=== PATIENT | female | born 1955 | race Caucasian/White ===

== ENCOUNTER 2021-07-17 11:04 | Emergency (ER) | payer MEDICARE, OTHER, SELFPAY ==
[2021-07-17 11:05] VITALS: BP 155/107; PULSE 104; RESP 20; TEMP 36.6; O2SAT 99; BMI 20.2
--- NOTE | 2021-07-17 11:11 | EKG12_ITS ---
Test Reason : PALPS Blood Pressure : / mmHG Vent. Rate : 089 BPM Atrial Rate : 089 BPM P-R Int : 138 ms QRS Dur : 092 ms QT Int : 372 ms P-R-T Axes : 058 038 038 degrees QTc Int : 452 ms Sinus rhythm with frequent Premature ventricular complexes Nonspecific ST abnormality Abnormal ECG Confirmed by JODI ULLOA, DORA ([id number]), editor map GEOFF ARMSTRONG ([id number]) on 07/19/2021 11:32:05 AM Referred By: CARMELINA/ARCELIA Confirmed By:DORA ZAPATA MD
[2021-07-17 11:31] LABS: Absolute Lymphocyte Count 1.62 X10^3/uL (0.83-4.51); Absolute Neutrophil Count 4.9 X10^3/uL (2.0-7.7); Basophil# 0.04 X10^3/uL; Basophil% 0.5 % (0-1); Eosinophil# 0.03 X10^3/uL; Eosinophils% 0.4 % (0-5); Hematocrit 44.2 % (37-47); Hemoglobin 14.9 g/dL (12.0-15.0); Lymphocyte # 1.62 X10^3/ul (0.83-4.51); Mean Corp Hgb Conc 33.7 g/dL (32-36); Mean Corpuscular Hgb 29.8 pg (27.0-32.0); Mean Corpuscular Volume 88.4 fL (81-99); Mean Platelet Vol. 8.5 fl (6.2-12.0); Monocyte% 10.9 % (0-10); NRBC Flagged by Analyzer 0 % (0-5); Neutrophil # 4.85 X10^3/uL (2.7-7.7); Neutrophil % 65.8 % (47-70); Platelet Count 308 K/mm3 (150-450); RBC Distribution Width CV 13.1 % (11.6-14.6); RBC Distribution Width SD 42.3 fl (35.1-43.9); White Blood Count 7.4 K/mm3 (4.4-11.0)
[2021-07-17 11:49] LABS: Anion Gap 7 (5-15); BUN 12 mg/dL (7-18); BUN/Creat Ratio 25.4 RATIO (10-20); Calcium,Total 9.4 mg/dL (8.5-10.1); Chloride 100 mmol/L (98-107); Creatinine, Serum 0.47 mg/dL (0.55-1.02); EST Glomerular Filtration Rate 140 mL/min (>60); Est Glom Filt Rate - Afr Amer 169 mL/min (>60); Estimated Creatinine Clearance 46.13 ml/min; Glucose 89 mg/dL (74-106); Potassium 3.9 mmol/L (3.5-5.1); Sodium Level 137 mmol/L (136-145); Troponin-I HS 8 pg/mL (3.0-54.0)
[2021-07-17 12:19] VITALS: BP 145/108; PULSE 102
--- NOTE | 2021-07-17 12:25 | ED.VIS.CHEST ---
HPI History of Present Illness Chief Complaint: Palpitations Onset/Context/Timing Onset: Today Timing: Intermittent Current Severity: Mild Maximum Severity: Mild Associated Symptoms: Positive for Palpitations; Negative for Nausea, Vomiting, Diaphoresis, Dyspnea, Cough, Fever, Lightheadedness and Acid Reflux Narrative Narrative: 66-year-old female history of mitral valve prolapse. States 2 weeks ago she had an episode of palpitations that lasted about 15 to 20 hours and then resolved. No chest pain or dyspnea. She was not evaluated at that time. Today again had palpitations which feels like her heart is either going fast or skipping beats. Denies any chest pain or other symptoms. No history of thyroid disease. No weight change. No hair loss. Prior Similar Symptoms: Yes Recent Illness/Hospitalization: No CVD Risk Factors: Negative for Hypertension, Diabetes and Smoking PE Risk Factors: Negative for Recent Travel/Surgery, Recent Immobilization, Prior DVT or PE, Cancer and OCP + Smoking + >/=35 TAD Risk Factors: Negative for Marfan's Syndrome and Hypertension PFSH [facility] Medical History Anxiety Mitral valve prolapse Home Medications NK 07/17/21 [History Last Taken Unknown] Allergy/AdvReac Type Severity Reaction Status Date / Time No Known Allergies Allergy Verified 07/17/21 11:07 Social History Smoking Status: Never smoker ROS ROS ED ROS Narrative Palpitations. Constitutional Constitutional ED: Denies chills or fever(s) Eyes Eyes: Reports none; Denies change in vision ENT ENT ED: Denies ear pain Cardiovascular Cardiovascular: Reports as per HPI, palpitations and racing heartbeat; Denies chest pain Respiratory/Chest Respiratory/Chest: Denies cough or dyspnea Gastrointestinal Gastrointestinal: Denies abdominal pain, diarrhea, nausea or vomiting Genitourinary Genitourinary ED: Denies dysuria or hematuria Musculoskeletal Musculoskeletal: Denies myalgias Integumentary Denies rash Neurologic Neurologic: Denies headache(s) Psychiatric Psychiatric: Denies depression Endocrine Endocrinology: Denies polyuria Hematologic/Lymphatic Hematologic/Lymphatic: Denies easy bruising Allergic/Immunologic Allergic/Immunologic ED: Denies urticaria EXAM Physical Exam Narrative Exam Narrative: 66-year-old female no acute distress. Vital signs stable afebrile initial blood pressure 155/107. Pulse ox 9 9% on room air no hypoxia. She is in no distress. She is mildly anxious. H EENT exam unremarkable. Neck nontender no lymphadenopathy. No thyromegaly. Lungs clear to auscultation bilaterally. Heart regular rhythm rate about 100 no murmur. Abdomen soft nontender normal bowel sounds no peritoneal signs. Moving all 4 extremities. Calves nontender without edema or cords. Neurologically she is awake and alert with no focal motor deficits. Const Vital Signs: 07/17/21 11:05 07/17/21 12:14 07/17/21 12:19 Temperature 97.9 F Temperature Source Temporal Pulse Rate 104 H 102 H Respiratory Rate 20 H Respiratory Effort Normal Non-Labored Respiratory Pattern Normal Blood Pressure 155/107 H 145/108 H Blood Pressure Mean 123 120 Pulse Ox 99 Oxygen Delivery Method Room Air Room Air 07/17/21 12:44 Temperature Temperature Source Pulse Rate 95 Respiratory Rate 17 Respiratory Effort Respiratory Pattern Blood Pressure 137/93 H Blood Pressure Mean 107 Pulse Ox 97 Oxygen Delivery Method Room Air Positive well nourished and well developed; Negative for obese, cachectic, contractures or unkempt General Appearance ED: well developed and NAD; Negative for unkempt, cachectic, contractures or pallor Nutritional Appearance: Negative for cachectic or obese HEENT Reports moist mucous membranes normocephalic and atraumatic; Negative for trauma or tenderness Eyes PERRL and EOMs intact bilaterally Neck no lymphadenopathy, supple and no JVD General: Negative for tenderness Chest Wall inspection of chest normal and palpation of chest normal Resp normal respiratory effort and clear to auscultation bilaterally Effort and Inspection: respiratory distress Auscultation: Negative for rales, rhonchi or wheezes Cardio regular rate, regular rhythm, S1 normal heart sound, S2 normal heart sound and no murmurs Rate: Negative for bradycardia or tachycardic Rhythm: Negative for abnormal rhythm GI normal to inspection, nondistended, normoactive bowel sounds, soft to palpation, non-tender, non-distended and no masses; Negative for hepatosplenomegaly Auscultation: Negative for hyperactive bowel sounds Palpation: Negative for splenomegaly Extremity normal to inspection General Extremety ED: Negative for edema or tenderness General Extremity: Negative for edema Neuro oriented x3 Sensorium / Orientation: awake, alert, oriented to person, oriented to place and oriented to time; Negative for confused, lethargic or stuporous Motor Exam: strength 5/5 throughout; Negative for general weakness Psych mental status grossly normal Appearance: Negative for unkempt Attitude: No agitated Mood & Affect: anxious; Negative for depressed or tearful Skin no rashes or lesions noted and no wounds General Skin Exam: Negative for jaundice or pallor Rashes: No rashes noted Trauma: Negative for abrasion or puncture MDM MDM MDM Narrative Medical decision making narrative: 66-year-old with palpitations. Exam benign. She looks younger than her stated age. Undergo cardiac work-up. Repeat exam patient doing well at 2:11 PM. I went over all the test results with the patient. She will be discharged home with outpatient follow-up. Lab Data Attestation: I reviewed the patient's lab results. Lab results narrative: CBC normal white count of 7. H&H of 14.9 and 44. Electrolytes normal gap is 7. Normal BUN and creatinine. Glucose 89. Troponin 8. TSH is normal at 3.1. Labs: Laboratory Results - last 24 hr 07/17/21 07/17/21 07/17/21 11:20 11:20 11:20 WBC 7.4 RBC 5.00 Hgb 14.9 Hct 44.2 MCV 88.4 MCH 29.8 MCHC 33.7 RDW Std Deviation 42.3 RDW Coeff of Gabriel 13.1 Plt Count 308 MPV 8.5 Immature Gran % (Auto) 0.400 Neut % (Auto) 65.8 Lymph % (Auto) 22.0 [place] % (Auto) 10.9 H Eos % (Auto) 0.4 Baso % (Auto) 0.5 Absolute Neuts (auto) 4.9 Absolute Lymphs (auto) 1.62 Nucleated RBC % 0 Sodium 137 Potassium 3.9 Chloride 100 Carbon Dioxide 30.0 Anion Gap 7 BUN 12 Creatinine 0.47 L Estim Creat Clear Calc 46.13 Est GFR (MDRD) Af Amer 169 Est GFR (MDRD) Non-Af 140 BUN/Creatinine Ratio 25.4 H Glucose 89 Calcium 9.4 Troponin I High Sens 8 TSH 3.11 Radiography Chest X-Ray - ED: 1 View, Read by ED Physician, Heart, Lungs, Mediastinum, Bony Structures, No Acute Disease and Chronic Changes Diagnostic Testing: Clinical Impression(s) from Imaging Studies Chest X-Ray 07/17/21 12:30 IMPRESSION: Hyperinflation. The lungs are clear. Electronically Signed: Jose Granger MD at 12:50 EST , Chest x-ray, portable, single view interpreted myself and radiologist shows no acute abnormality. Normal cardiac silhouette mediastinum. Discharge Plan Triage Chief Complaint: Palpitations ED Provider: Will Dodson Dx/Rx/DC Orders Clinical Impression: Heart palpitations, Hx of mitral valve prolapse, Premature ventricular contractions (PVCs) (VPCs) Instructions: PVCs, ED Palpitations Prescriptions: No Action NK RF: 0 Primary Care Provider: Care Physician,No Primary Referrals: Jono Cartagena MD [STAFF PHYSICIAN] - As soon as possible Care Physician,No Primary [Primary Care Provider] - Activity Restrictions/Additional Instructions: Your chest x-ray, EKG and labs today were unremarkable. You are having some frequent premature contractions which may be what you are feeling. Follow-up with primary care physician to possibly have fever and event monitor or Holter monitor placed for further evaluation. Disposition Disposition: Home, Self Care
--- NOTE | 2021-07-17 12:30 | RAD_ITS ---
STUDY: X-RAY CHEST REASON FOR EXAM: Female, 66 years old. Palpitations and chest pain. TECHNIQUE: Single AP portable view of the chest. COMPARISON: None. FINDINGS: EKG electrodes are seen. Hyperinflation. The lungs are clear. There is no demonstrated pleural abnormality. Normal size heart. Normal mediastinum and hank. Normal visualized pulmonary arteries. There is atherosclerotic calcification of the aortic arch with tortuosity. There are diffuse degenerative changes of the visualized thoracic spine. There is degenerative osteoarthritis of the bilateral shoulders. There is no demonstrated abnormality of the visualized soft tissue structures of the upper abdomen. RAD/Chest 1 View (Portable) IMPRESSION: Hyperinflation. The lungs are clear. Electronically Signed: Jose Granger MD at 12:50 EST ,
[2021-07-17 12:44] VITALS: BP 137/93; PULSE 95; RESP 17; O2SAT 97
[2021-07-17 13:14] LABS: Thyroid Stim Hormone (TSH) 3.11 uIU/mL (0.358-3.74)
== END 2021-07-17 14:40 | disposition home or self-care (01) ==
PROVIDERS: Emergency Provider Emergency Medicine; Visit Provider Emergency Medicine
DX: R00.2 Palpitations (principal); I49.3 Ventricular premature depolarization
CPT/HCPCS: 71045; 80048; 84443; 84484; 85025; 93005; 99284; A4216

== ENCOUNTER → 2021-10-23 | Outpatient (CLI) | payer MEDICARE, OTHER, SELFPAY ==
--- NOTE | 2021-10-23 09:38 | STE_ITS ---
Reason For Study: MVP,ABN ECG Stress Results Protocol: Elia Protocol Maximum Predicted HR: 153 bpm Target HR: 130 bpm % Maximum Predicted HR: 99 % DurationHeart Rate Stage (mm:ss) (bpm) BP BASELINE 105 142/68 STAGE 1 3:00 115 162/88 STAGE 2 3:00 136 178/90 STAGE 3 3:00 151 180/82 RECOVERY 105 118/84 Stress Duration: 9:00 mm:ss Maximum Stress HR: 151 bpm Baseline Echocardiogram Findings Stress Echo Wall motion Data Resting WM Intermediate WM Stress WM ECHO/Stress Test Echo w/o Contrast Interpretation Summary Exercise stress echo. 66-year-old lady with a history of abnormal EKG. Stress protocol. Resting KG demonstrates normal sinus rhythm with a rate of 94 bpm premature gisela tricular complexes noted resting blood pressure is 142/68 mmHg. The patient exercised according to regular Elia protocol for total duration of 9 minutes. Patient completed stage III of the Br uce protocol. The maximum heart rate attained was 153 bpm which was 100% of max impact at heart r ate the maximum workload was 10.1 metabolic equivalents. At rest there were no ST or T wave jerman nges noted to suggest ischemia, and at peak exercise nonspecific ST changes were noted with did not m eet the criteria for ischemia. The test was terminated because the target heart rate was achieved, t he peak blood pressure was 180/82 mmHg which was a good blood pressure response to exercise. Stress echocardiogram. Resting echocardiographic images demonstrated preserved ejection fraction of 55 % with mild mitral valve prolapse noted. The stress images demonstrated improvement in left ventri cular systolic function peaking at 65% with thickening of all rowe with no wall motion abnorm alities to suggest ischemia. Conclusion: Exercise stress echo with no evidence of ischemia at a high workload. Resting mitral valve prolapse noted. Ordering Physician: Griselda^^^ Performed By: Donny Keys RCS
== END | disposition home or self-care (01) ==
PROVIDERS: PCP Internal Medicine; Visit Provider Internal Medicine Cardiovascular Disease
DX: I47.2 Ventricular tachycardia (principal); R94.31 Abnormal electrocardiogram [ECG] [EKG]
CPT/HCPCS: 93017; 93350

== ENCOUNTER → 2022-01-18 | Outpatient (CLI) | payer MEDICARE, OTHER, SELFPAY ==
[2022-01-18 13:16] LABS: T4 Free Direct 1.03 ng/dL (0.76-1.46); Thyroid Stim Hormone (TSH) 2.55 uIU/mL (0.358-3.74)
[2022-01-19 11:27] LABS: Thyroid Peroxidase AB 26 IU/mL (0-34)
== END | disposition home or self-care (01) ==
LOC: LAB 11:54
PROVIDERS: Visit Provider Internal Medicine Endocrinology, Diabetes & Metabolism
DX: E04.2 Nontoxic multinodular goiter (principal)
CPT/HCPCS: 36415; 84439; 84443; 86376

== ENCOUNTER → 2022-02-13 | Outpatient (CLI) | payer MEDICARE, OTHER, SELFPAY ==
--- NOTE | 2022-02-13 | ASPIG_PTH ---
PATIENT: AFSANEH KENNY LOC: [facility]#:[id number] AGE/SX: 66/F ROOM: RE02/13/[address]: Dr. Erlin Prince MD : 1955 BED: DIS: 02/13/2022 SPEC #: [id number] RECD: 02/13/22 15:13 STATUS: HORTENCIA ARNOLD #: [id number] MARIAELENA: 02/13/22 00:[address]: Erlin Prince DEPT: CYTOLOGY RECD BY: Ashvin Coto Tissues: A - Thyroid isthmus B - Thyroid isthmus Procedures: FNA Specimen Adequacy Special Stain Group II Surgery Specimen Level IV Cytology Other HEADER OPERATION: Fine needle aspiration, isthmus nodule PRE-OP DIAGNOSIS: Multiple thyroid nodules TISSUE SUBMITTED: A ? Thyroid isthmus nodule fluid, B ? Thyroid isthmus nodule x4 slides DIAGNOSIS CYTOLOGY A. Thyroid isthmus nodule fluid, fine needle aspiration (cytospin and cell block): Consistent with benign follicular/colloid nodule ([place] Category II). Adequate for evaluation. See comment. B. Thyroid isthmus nodule, fine needle aspiration (smears): Consistent with benign follicular/colloid nodule ([place] Category II). Adequate for evaluation. See comment. SJ:rg 02/15/2022 COMMENT A & B. Correlation with clinical, radiologic findings and appropriate follow up are necessary. CYTOLOGY STUDY Slides are reviewed. CYTOLOGY GROSS A - Received is 30 ml of pink fluid labeled with the patient's name and and designated per the requisition as thyroid isthmus nodule. Submitted for cytology preparation including cell block. B - Received are four smears labeled with the patient's name and designated per the requisition as thyroid isthmus nodule. Submitted for staining. / kevon 02/14/2022 TC:5 CPT: 60934 x2, 37410
== END | disposition home or self-care (01) ==
LOC: LABSPEC 15:27
PROVIDERS: Referring Provider Surgery; Visit Provider Surgery
DX: E04.2 Nontoxic multinodular goiter (principal)
CPT/HCPCS: 88161; 88172; 88305; 88307; 88313